=== PATIENT | male | born 2000 | race Hispanic/Latino ===

== ENCOUNTER 2021-09-19 07:05 | Emergency (ER) | payer MEDICAID, OTHER ==
[2021-09-19] MEDS ORDERED: LIDOCAINE 2%/EPINEPHRINE 1:200,000 VIAL (20 ML) INFILTRATI ONE (08:21)
--- NOTE | 2021-09-19 08:58 | Emergency Department Report ---
ED Psych HPI - General Chief Complaint: Laceration/Recheck/Suture Stated Complaint: LACERATIONS TO RT ARM Time Seen by Provider: 09/19/21 07:41 Source: EMS Mode of arrival: Stretcher - History of Present Illness Initial Comments: This is a 20-year-old male nontoxic, well nourished in appearance, no acute signs of distress presents to the ED with c/o of depression with right arm abrasions with laceration that started this morning. Denies any other injuries or complaints. Patient stated it was a self-inflicted wound because he is depressed and did not want to consider anybody else which she used a box sorter to self-inflicted wounds. Patient has history of suicidal attempts. Patient denies any homicidal ideation. Patient denies any fever, chills, nausea, vomiting, chest pain, shortness of breath, headache or stiff neck. Patient otherwise denies any symptoms. Patient stated had some alcohol consumption but denies any drug consumption. Patient stated allergies to penicillin and diphenhydramine. MD Complaint: feels depressed, other (self harm) -: This morning Associated Psychiatric Symptoms: depression History of same: Yes Quality: constant Improves With: none Worsens With: none Context: recent alcohol abuse Associated Symptoms: denies other symptoms. denies: confusion, headache, shortness of breath, nausea, vomiting, syncope, insomnia Treatments Prior to Arrival: placed on mental he If Self Harm: self-inflicted trauma - Related Data Home Medications Medication Instructions Recorded Confirmed Last Taken No Known Home Medications [No 09/19/21 09/19/21 Unknown Reported Home Medications] Allergies Allergy/AdvReac Type Severity Reaction Status Date / Time diphenhydramine Allergy Hives Verified 09/19/21 07:13 Penicillins Allergy Hives Verified 09/19/21 07:13 ED Review of Systems ROS: Stated complaint: LACERATIONS TO RT ARM Other details as noted in HPI Comment: All other systems reviewed and negative Constitutional: denies: chills, fever Eyes: denies: eye pain, eye discharge, vision change ENT: denies: ear pain, throat pain Respiratory: denies: cough, shortness of breath, wheezing Cardiovascular: denies: chest pain, palpitations Endocrine: no symptoms reported Gastrointestinal: denies: abdominal pain, nausea, diarrhea Genitourinary: denies: urgency, dysuria Musculoskeletal: denies: back pain, joint swelling, arthralgia Skin: denies: rash, lesions Neurological: denies: headache, weakness, paresthesias Psychiatric: denies: anxiety, depression, auditory hallucinations, visual hallucinations, homicidal thoughts, suicidal thoughts Hematological/Lymphatic: denies: easy bleeding, easy bruising ED Past Medical Hx - Past Medical History Previous Medical History?: No - Surgical History Past Surgical History?: No - Medications Home Medications: Home Medications Medication Instructions Recorded Confirmed Last Taken Type No Known Home Medications [No 09/19/21 09/19/21 Unknown History Reported Home Medications] ED Physical Exam - General Limitations: No Limitations General appearance: alert, in no apparent distress - Head Head exam: Present: atraumatic, normocephalic - Eye Eye exam: Present: normal appearance - Neck Neck exam: Present: normal inspection, full ROM. Absent: lymphadenopathy - Respiratory Respiratory exam: Present: normal lung sounds bilaterally. Absent: respiratory distress, wheezes, rales, rhonchi, stridor, chest wall tenderness, accessory muscle use, decreased breath sounds, prolonged expiratory - Cardiovascular Cardiovascular Exam: Present: regular rate, normal rhythm, normal heart sounds. Absent: bradycardia, tachycardia, irregular rhythm, systolic murmur, diastolic murmur, rubs, gallop - GI/Abdominal GI/Abdominal exam: Present: soft, normal bowel sounds. Absent: distended, tenderness, guarding, rebound, rigid - Extremities Exam Extremities exam: Present: full ROM, normal capillary refill. Absent: tenderness, joint swelling - Expanded Upper Extremity Exam Right General: Present: normal inspection Shoulder Exam: Present: normal inspection, full ROM. Absent: tenderness, swelling, abrasion, laceration, ecchymosis, deformity, crepidus, dislocation, erythema, tenderness over AC joint Upper Arm exam: Present: full ROM, tenderness, abrasion, laceration. Absent: swelling, ecchymosis, deformity, crepidus, dislocation, erythema Elbow exam: Present: normal inspection, full ROM, other (old abrasions from previous self inflicted wounds). Absent: tenderness, swelling Forearm Wrist exam: Present: full ROM, other (old abrasions from previous self inflicted wounds). Absent: tenderness, swelling Hand Wrist exam: Present: normal inspection, full ROM, other. Absent: tenderness, swelling Vascular: Present: normal capillary refill. Absent: vascular compromise (Neurovascular within normal limits) - Back Exam Back exam: Present: normal inspection, full ROM. Absent: tenderness, CVA tenderness (R), CVA tenderness (L), muscle spasm, paraspinal tenderness, vertebral tenderness, rash noted - Neurological Exam Neurological exam: Present: alert, oriented X3, normal gait - Psychiatric Psychiatric exam: Present: depressed. Absent: agitated, anxious, flat affect, manic, homicidal ideation, suicidal ideation - Skin Skin exam: Present: warm, dry, intact, normal color. Absent: rash - Expanded Skin Exam Expanded 1 - Multiple abrasions from self-inflicted wound 2 - 5 cm superficial laceration present here ED Course Vital Signs 09/19/21 09/19/21 07:11 09:24 Temperature 98.0 F Pulse Rate 78 Respiratory 16 Rate Blood Pressure 120/80 [Right] O2 Sat by Pulse 99 99 Oximetry - Reevaluation(s) Reevaluation #1: 09/19/21 08:58 Patient is speaking in full sentences with no signs of distress noted. - Laceration /Wound Repair Right Arm Wound Location: upper extremity (right arm) Wound Length (cm): 5 Wound's Depth, Shape: superficial Wound Explored: clean Irrigated w/ Saline (ccs): 40 Volume Anesthetic (ccs): 6 (2% lidocaine with 1:200,000 epi) Wound Repaired With: sutures Suture Size/Type: 4:0, proline Number of Sutures: 7 Layer Closure?: No Sterile Dressing Applied?: Yes Progress: Under sterile field, I used Betadine to clean the area. I then used 40 mL of normal saline to flush the area. I then used 2% lidocaine with epi 1-200,000 and injected 6 mL to the wound. I then used a 4-0 Prolene to suture the laceration. Number of stitches 7. I then applied a sterile 4 x 4 with tape. Minimal bleeding noted but is under control. Patient tolerated procedure well with no signs of distress. ED Medical Decision Making - Lab Data Result diagrams: 09/19/21 08:22 09/19/21 08:22 Lab Results 09/19/21 09/19/21 09/19/21 Range/Units 08:22 08:22 08:22 WBC 4.9 (4.5-11.0) K/mm3 RBC 4.14 (3.65-5.03) M/mm3 Hgb 12.8 (11.8-15.2) gm/dl Hct 36.4 (35.5-45.6) % MCV 88 (84-94) fl MCH 31 (28-32) pg MCHC 35 H (32-34) % RDW 13.0 L (13.2-15.2) % Plt Count 451 H (140-440) K/mm3 Lymph % (Auto) 35.8 H (13.4-35.0) % [place] % (Auto) 6.1 (0.0-7.3) % Eos % (Auto) 1.2 (0.0-4.3) % Baso % (Auto) 1.1 (0.0-1.8) % Lymph # (Auto) 1.8 (1.2-5.4) K/mm3 [place] # (Auto) 0.3 (0.0-0.8) K/mm3 Eos # (Auto) 0.1 (0.0-0.4) K/mm3 Baso # (Auto) 0.1 (0.0-0.1) K/mm3 Seg Neutrophils % 55.8 (40.0-70.0) % Seg Neutrophils # 2.7 (1.8-7.7) K/mm3 Sodium 142 (137-145) mmol/L Potassium 3.8 (3.6-5.0) mmol/L Chloride 103.0 (98-107) mmol/L Carbon Dioxide 22 (22-30) mmol/L Anion Gap 21 mmol/L BUN 10 (9-20) mg/dL Creatinine 0.8 (0.8-1.3) mg/dL Estimated GFR > 60 ml/min BUN/Creatinine Ratio 13 % Glucose 90 (75-100) mg/dL Calcium 9.5 (8.4-10.2) mg/dL Salicylates < 0.3 L (2.8-20.0) mg/dL Acetaminophen (10.0-30.0) ug/mL Plasma/Serum Alcohol (0-0.07) % 09/19/21 09/19/21 Range/Units 08:22 08:22 WBC (4.5-11.0) K/mm3 RBC (3.65-5.03) M/mm3 Hgb (11.8-15.2) gm/dl Hct (35.5-45.6) % MCV (84-94) fl MCH (28-32) pg MCHC (32-34) % RDW (13.2-15.2) % Plt Count (140-440) K/mm3 Lymph % (Auto) (13.4-35.0) % [place] % (Auto) (0.0-7.3) % Eos % (Auto) (0.0-4.3) % Baso % (Auto) (0.0-1.8) % Lymph # (Auto) (1.2-5.4) K/mm3 [place] # (Auto) (0.0-0.8) K/mm3 Eos # (Auto) (0.0-0.4) K/mm3 Baso # (Auto) (0.0-0.1) K/mm3 Seg Neutrophils % (40.0-70.0) % Seg Neutrophils # (1.8-7.7) K/mm3 Sodium (137-145) mmol/L Potassium (3.6-5.0) mmol/L Chloride (98-107) mmol/L Carbon Dioxide (22-30) mmol/L Anion Gap mmol/L BUN (9-20) mg/dL Creatinine (0.8-1.3) mg/dL Estimated GFR ml/min BUN/Creatinine Ratio % Glucose (75-100) mg/dL Calcium (8.4-10.2) mg/dL Salicylates (2.8-20.0) mg/dL Acetaminophen 5.0 L (10.0-30.0) ug/mL Plasma/Serum Alcohol 0.14 H (0-0.07) % - Medical Decision Making This is a 20-year-old male that presents with depression with self-inflicted wounds. Patient is currently stable and was examined by ok. Patient has been placed on 1013 and patient to be examined and evaluated by psychiatrist. Patient was notified to have suture removal in 10 days. Patient will remain in the ER until cleared by psychiatry. At time of admission, the patient does not seem toxic or ill in appearance. No acute signs of distress noted. Patient ag jesús to admission treatment plan of care. No further questions noted by the patient. Critical care attestation.: If time is entered above; I have spent that time in minutes in the direct care of this critically ill patient, excluding procedure time. ED Disposition Clinical Impression: Laceration, Self-inflicted injury Depression Qualifiers: Depression Type: unspecified Qualified Code(s): F32.A - Depression, unspecified Disposition: [address] [place] [address] Is pt being admited?: No Condition: Stable Referrals: PRIMARY CARE, [Primary Care Provider] - 3-5 Days Time of Disposition: 09:01
[2021-09-19 09:03] LABS: Basophils # (Auto) 0.1 K/mm3 (0.0-0.1); Basophils % (Auto) 1.1 % (0.0-1.8); Eosinophils # (Auto) 0.1 K/mm3 (0.0-0.4); Eosinophils % (Auto) 1.2 % (0.0-4.3); Hematocrit 36.4 % (35.5-45.6); Hemoglobin 12.8 gm/dl (11.8-15.2); Lymphocytes # (Auto) 1.8 K/mm3 (1.2-5.4); Lymphocytes % (Auto) 35.8 % (13.4-35.0); Mean Corpuscular HGB Conc 35 % (32-34); Mean Corpuscular Volume 88 fl (84-94); Monocytes # (Auto) 0.3 K/mm3 (0.0-0.8); Monocytes % (Auto) 6.1 % (0.0-7.3); Platelet Count 451 K/mm3 (140-440); Red Blood Count 4.14 M/mm3 (3.65-5.03)
[2021-09-19 09:15] LABS: BUN/Creatinine Ratio 13; Blood Urea Nitrogen 10 mg/dL (9-20); Calcium 9.5 mg/dL (8.4-10.2); Hemolysis Index 8
[2021-09-19 16:56] LABS: Bilirubin,Urine NEG (Negative); Blood,Urine NEG (Negative); Color,Urine Yellow (Yellow); Mucus,Urine 3+ /HPF; Protein,Urine <15 mg/dL mg/dL (Negative); RBC,Urine < 1.0 /HPF (0.0-6.0); Urobilinogen,Urine < 2.0 mg/dL (<2.0)
[2021-09-19 17:08] LABS: Amphetamine Screen,Urine Negative; Benzodiazepines Screen,Urine Negative; Cannabinoid Screen,Urine Negative; Cocaine Screen,Urine Negative; Methadone Screen,Urine Negative; Opiate Screen,Urine Negative
--- NOTE | 2021-09-20 10:17 | Consultation ---
History of Present Illness - Reason for Consult Consult date: 09/20/21 Reason for consult: suicidal attempt - History of Present Psychiatric Illness ED Note: This is a 20-year-old male nontoxic, well nourished in appearance, no acute signs of distress presents to the ED with c/o of depression with right arm abrasions with laceration that started this morning. Denies any other injuries or complaints. Patient stated it was a self-inflicted wound because he is depressed and did not want to consider anybody else which she used a dye box operator to self-inflicted wounds. Patient has history of suicidal attempts. Patient denies any homicidal ideation. Patient denies any fever, chills, nausea, vomiting, chest pain, shortness of breath, headache or stiff neck. Patient otherwise denies any symptoms. Patient stated had some alcohol consumption but denies any drug consumption. Patient stated allergies to penicillin and diphenhydramine. The patient is a 20 year old male with history of depression who presents to the ED with suicidal attempt via cutting. The patient was seen this morning. He has several cuts with stitches to his left upper arm. The patient reports stressors such as "I have been very stressed in the last 2 months, my mother overdosed, my father got crushed by a car, I take care of my brother and my girlfriend broke up with me." The patient states that he had too much free time, and was drunk. The patient minimizes the incident stating " the cut is not bad, I have done worse in the past." He denies any current suicidal/homicidal ideation and denies hallucinations. PAST PSYCHIATRIC HISTORY Diagnoses: Depression Suicide attempts or Self-harm behavior: Yes- cutting Prior psychiatric hospitalizations: Yes Substance Abuse history: Alcohol Previous psychiatric medications tried:Unable to recall Outpatient treatment: Denies PAST MEDICAL HISTORY: Family Psychiatric History: None reported or documented SOCIAL HISTORY Marital Status: Single Living Arrangements:Lives with brother Employment Status: employed Access to guns/weapons: None reported Education: 11th grade History of Abuse: None reported Legal History: Unknown REVIEW OF SYSTEMS Constitutional: Negative for weight loss ENT: Negative for stridor Respiratory: Negative for cough or hemoptysis All other systems reviewed and are negative MENTAL STATUS EXAMINATION General Appearance and Behavior: Age appropriate, good hygiene, wearing appropriate clothes, good eye contact, cooperative with questioning Cooperation: Participating/engaged Psychomotor Behavior: unremarkable and within normal limits Mood: Depressed Affect and affective range: congruent with mood Thought Process: Goal directed Thought Content: Reality oriented Speech: Normal volume, Regular rate and rhythm. Intellectual Functioning: Average Suicidal Ideation:Denies Homicidal Ideation: Denies Hallucinations: Denies Delusions: None elicited Impulse Control: Limited Insight and Judgment: limited insight and poor judgment Memory: Normal Attention: Normal Orientation: Alert, oriented. Assessment and Plan (1) Major depressive disorder Current Visit: No Status: Acute Treatment Plan 1013 Prozac 20mg po daily Risks, benefits and alternatives of medications discussed with the patient, questions answered and consent obtained from patient. PSYCHOTHERAPY: Supportive psychotherapy provided MEDICAL: Per primary team DELIRIUM PRECAUTIONS: Please re-orient patient frequently, keep lights on during the day, and minimize benzodiazepines and opiates as these medications could worsen patient's confusion. RADIO COMMUNICATIONS MECHANICIAN: non indicated DISPOSITION: Recommend acute inpatient psychiatric hospitalization at this time. FOLLOW-UP: Will follow. Thank you for the consult. Please contact with any questions and/or concerns. Case staffed with Dr. Camara Medications and Allergies Allergies Allergy/AdvReac Type Severity Reaction Status Date / Time diphenhydramine Allergy Hives Verified 09/19/21 07:13 Penicillins Allergy Hives Verified 09/19/21 07:13 Home Medications Medication Instructions Recorded Confirmed Last Taken Type No Known Home Medications [No 09/19/21 09/19/21 Unknown History Reported Home Medications] Mental Status Exam - Vital signs Last Vital Signs Temp 98.2 F 09/20/21 02:57 Pulse 59 L 09/20/21 02:57 Resp 16 09/20/21 04:58 BP 115/43 09/20/21 02:57 Pulse Ox 99 09/20/21 04:58 Results Result Diagrams: 09/19/21 08:22 09/19/21 08:22 All other labs normal.
[2021-09-20] MEDS: FLUoxetine 20 MG CAP PO SCH (10:58)
--- NOTE | 2021-09-20 11:17 | Event Note ---
No acute issues. Patient is medically clear for psychiatric care.
[2021-09-21] MEDS: FLUoxetine 20 MG CAP PO SCH (09:51)
--- NOTE | 2021-09-21 10:21 | Progress Note ---
Subjective - Reason for Consult Consult date: 09/21/21 Reason for consult: suicidal Ideation - Chief Complaint Chief complaint: The patient was seen this morning. He reports doing well, states sleep and appetite as ok. The patient denies any current suicidal/homicidal ideation and denies hallucinations. REVIEW OF SYSTEMS Constitutional: Negative for weight loss ENT: Negative for stridor Respiratory: Negative for cough or hemoptysis All other systems reviewed and are negative MENTAL STATUS EXAMINATION General Appearance and Behavior: Age appropriate, good hygiene, wearing appropriate clothes, good eye contact, cooperative with questioning Cooperation: Participating/engaged Psychomotor Behavior: unremarkable and within normal limits Mood: "ok" Affect and affective range: congruent with mood Thought Process: Goal directed Thought Content: Reality oriented Speech: Normal volume, Regular rate and rhythm. Intellectual Functioning: Average Suicidal Ideation:Denies Homicidal Ideation: Denies Hallucinations: Denies Delusions: None elicited Impulse Control: Limited Insight and Judgment: limited insight and poor judgment Memory: Normal Attention: Normal Orientation: Alert, oriented. Assessment and Plan (1) Major depressive disorder Current Visit: No Status: Acute Treatment Plan Dc 1013 Prozac 20mg po daily Risks, benefits and alternatives of medications discussed with the patient, questions answered and consent obtained from patient. PSYCHOTHERAPY: Supportive psychotherapy provided MEDICAL: Per primary team DELIRIUM PRECAUTIONS: Please re-orient patient frequently, keep lights on during the day, and minimize benzodiazepines and opiates as these medications could worsen patient's confusion. DIRECTOR COUNCIL ON AGING: non indicated DISPOSITION: Do not recommend acute inpatient psychiatric hospitalization at this time. Financial Recording Clerk will provide patient with psychiatric outpatient resources. FOLLOW-UP: Will sign off. Please contact with any questions and/or concerns. Case staffed with Dr. Camara Medications and Allergies Mental Status Exam - Vital signs Last Vital Signs Temp 98.0 F 09/21/21 00:21 Pulse 73 09/21/21 00:21 Resp 17 09/21/21 00:21 BP 120/58 09/21/21 00:21 Pulse Ox 98 09/21/21 00:21
[2021-09-21 10:52] VITALS: BP 111/94
== END 2021-09-21 13:38 ==
LOC: ED 07:05
DX: S41.111A Laceration without foreign body of right upper arm, initial encounter (principal); F32.9 Major depressive disorder, single episode, unspecified; Z20.822 Contact with and (suspected) exposure to COVID-19; Z88.0 Allergy status to penicillin; Z79.899 Other long term (current) drug therapy; Z88.8 Allergy status to other drugs, medicaments and biological substances; X83.8XXA Intentional self-harm by other specified means, initial encounter; Y93.89 Activity, other specified; Y92.89 Other specified places as the place of occurrence of the external cause; Y99.8 Other external cause status
CPT/HCPCS: 12002; 36415; 80048; 80307; 81001; 85025; 99284; J3490; U0003; 80320; G0480